=== PATIENT | female | born 1950 | race Hispanic/Latino ===

== ENCOUNTER 2024-02-06 05:54 | Observation (INO) | payer MEDICARE ==
[2024-01-31 13:55] LABS: BASOPHILS # (AUTO) 0.03 K/uL (0.00-0.20); BASOPHILS % (AUTO) 0.4 % (0.0-5.0); EOSINOPHILS # (AUTO) 0.07 K/uL (0.00-0.70); EOSINOPHILS % (AUTO) 0.9 % (0.0-8.0); HEMATOCRIT 41.7 % (36-48); IMMATURE GRANULOCYTE ABSOLUTE 0.02 K/uL (0-1); LYMPHOCYTES # (AUTO) 1.6 K/uL (1.0-4.8); LYMPHOCYTES % (AUTO) 20.5 % (21.0-51.0); MEAN CORPUSCULAR HEMOGLOBIN 30.1 pg (27.0-33.0); MEAN CORPUSCULAR HGB CONC 31.7 g/dL (32.0-36.0); MONOCYTES # (AUTO) 0.6 K/uL (0.1-1.0); MONOCYTES % (AUTO) 7.9 % (3.0-13.0); NEUTROPHILS # (AUTO) 5.3 K/uL (1.8-7.7); PLATELET COUNT (AUTO) 257 K/uL (130-400); RED BLOOD CELL COUNT(AUTO) 4.39 MIL/uL (4.00-5.50); RED CELL DISTRIBUTION WIDTH 12.6 % (11.0-15.5); WHITE BLOOD COUNT (AUTO) 7.6 K/uL (4.8-10.8)
[2024-01-31 14:03] LABS: ADD UA MICROSCOPIC NO; APPEARANCE,URINE CLEAR (CLEAR); BILIRUBIN,URINE NEGATIVE (NEGATIVE); COLOR,URINE LIGHT-YELLOW (YELLOW); GLUCOSE, URINE (UA) NEGATIVE (NEGATIVE); KETONES,URINE NEGATIVE (NEGATIVE); LEUKOCYTE ESTERASE ,URINE NEGATIVE Leu/uL (NEGATIVE); NITRATE,URINE NEGATIVE (NEGATIVE); OCCULT BLOOD,URINE NEGATIVE (NEGATIVE); PROTEIN,URINE NEGATIVE (NEGATIVE); UROBILINOGEN,URINE 0.2 mg/dL (0.2-1.0)
[2024-01-31 14:06] LABS: PARTIAL THROMBOPLASTIN TIME 25.9 SEC (26.3-35.5)
[2024-01-31 14:08] LABS: ALBUMIN 3.6 g/dL (3.5-5.0)
[2024-01-31 14:12] VITALS: BP 170/61; PULSE 75; RESP 18; TEMP 97.9
[2024-01-31 14:25] LABS: INR 0.95 (0.85-1.15); PROTHROMBIN TIME 10.3 SEC (9.6-11.6)
[~2024-02-06] VITALS: Ht 154.9 cm; Wt 102.4 kg
[2024-02-06] VITALS (26 sets, daily range): BP systolic 122–170; BP diastolic 42–98; PULSE 63–98; RESP 12–20; TEMP 97.7–98.1
[~2024-02-06 05:54] MED LIST: ACET-66 PO; FOLI1 PO; LEFL20TA22 PO; LOSA1TAB37 PO; SULF500T8 PO
[2024-02-06] MEDS ORDERED: GLYCOPYRROLATE 0.2 MG/ML 5 ML VIAL ONE (06:38)
[2024-02-06] MEDS ORDERED: SUCCINYLCHOLINE CHLORIDE 20 MG/ML 10 ML VIAL ONE (06:38)
[2024-02-06] MEDS ORDERED: dexaMETHasone SOD PHOSPHATE 10MG/ML 1ML VIAL ONE (06:38)
[2024-02-06] MEDS ORDERED: ondanSETRON 4MG INJ ONE (06:38)
[2024-02-06] MEDS ORDERED: LIDOCAINE PF 100MG/5ML (2%) SYRINGE 5ML ONE (06:38)
[2024-02-06] MEDS ORDERED: rocuRONium bROMide 10MG/1ML 5ML VL ONE (06:39)
[2024-02-06] MEDS ORDERED: MIDAZOLAM HCL 1 MG/ML 2ML VIAL ONE (06:39)
[2024-02-06] MEDS ORDERED: FENTanyl CITRate PF 50 MCG/1 ML 2ML VIAL ONE ×3 (06:39→09:01)
[2024-02-06] MEDS ORDERED: proPOFol 10 MG/ML 20ML VIAL IV ONE (06:39)
[2024-02-06] MEDS ORDERED: NEOSTIGMINE METHYLSULFATE 1MG/ML IV ONE (06:39)
[2024-02-06] MEDS ORDERED: ROPivacaine 0.5% 5MG/ML 30ML ONE ×2 (06:41→06:43)
[2024-02-06] MEDS ORDERED: TRANEXAMIC ACID 1000MG/10ML ONE (06:43)
[2024-02-06] MEDS ORDERED: ketOROlac 30MG VIAL (30MG/ML) ONE (06:43)
[2024-02-06] MEDS: LACTATED RINGERS 1000ML 1,000 ML IV ONE (06:57)
[2024-02-06] MEDS: ceFAZolin SODIUM 2 GM VIAL ONE (06:57)
[2024-02-06] MEDS ORDERED: ketaMINE 50MG/ML SYRINGE 50 MG/ML DISP.SYRIN ONE (07:09)
[2024-02-06 07:21] LABS: CREATININE 0.6 mg/dL (0.5-1.0); POTASSIUM 3.7 mmol/L (3.5-5.1)
[2024-02-06] MEDS: ceFAZolin SODIUM 2 GM VIAL IVPB ONE (07:35)
[2024-02-06] MEDS: ROPivacaine 0.5% 5MG/ML 30ML IJ ONE (09:00)
[2024-02-06] MEDS: 0.9%NACL 1000ML 1,000 ML IV SCH (10:00)
[2024-02-06] MEDS ORDERED: PoTASSium chl 10% ELIXIR 20MEQ 20 MEQ/15 ML UDCUP PO PRN (10:00)
[2024-02-06] MEDS ORDERED: FERROUS FUMARATE 324 MG TABLET PO PRN (10:00)
[2024-02-06] MEDS ORDERED: ondanSETRON 4MG INJ IVP PRN (10:00)
[2024-02-06] MEDS ORDERED: CALCIUM CARB 500MG PO PRN (10:00)
[2024-02-06] MEDS ORDERED: CYCLOBENZAPRINE HCL 10 MG TABLET PO PRN (10:00)
[2024-02-06] MEDS ORDERED: PoTASSium chloRIDE 20MEQ/100ML 100 ML IV PRN (10:00)
[2024-02-06] MEDS: GABApentin 100 MG CAPSULE PO SCH (13:37)
[2024-02-06] MEDS: HYDROcodone/APAP 5/325 1 TAB TABLET PO PRN (13:37)
[2024-02-06] MEDS: ceFAZolin SODIUM 1 GM VIAL IVPB SCH (16:06)
[2024-02-06] MEDS: FOLic ACID 1 MG TABLET PO SCH (20:39)
[2024-02-06] MEDS: LEFLUNOMIDE 20 MG PO SCH (20:39)
[2024-02-06] MEDS: SULFASALAZINE 500 MG PO SCH (20:39)
[2024-02-06] MEDS: traMADol HCL 50 MG TABLET PO PRN (22:43)
[2024-02-07] VITALS (7 sets, daily range): BP systolic 120–151; BP diastolic 52–78; PULSE 81–96; RESP 16–28; TEMP 97.4–99.1; O2SAT 97
[2024-02-07 05:57] LABS: HEMATOCRIT 32.7 % (36-48); MEAN CORPUSCULAR HEMOGLOBIN 30.5 pg (27.0-33.0); MEAN CORPUSCULAR HGB CONC 32.1 g/dL (32.0-36.0); MEAN CORPUSCULAR VOLUME 95.1 fL (79-99); RED BLOOD CELL COUNT(AUTO) 3.44 MIL/uL (4.00-5.50); RED CELL DISTRIBUTION WIDTH 12.5 % (11.0-15.5); WHITE BLOOD COUNT (AUTO) 9.2 K/uL (4.8-10.8)
[2024-02-07 06:06] LABS: CREATININE 0.6 mg/dL (0.5-1.0); POTASSIUM 3.5 mmol/L (3.5-5.1)
[2024-02-07] MEDS: SULFASALAZINE 500 MG PO SCH (09:00)
[2024-02-07] MEDS: polyETHYLene GLYCol 3350 17 GM POWD.PACK PO SCH (09:33)
[2024-02-07] MEDS: ASPIRIN 325MG EC TAB PO SCH (09:33)
[2024-02-07] MEDS: LOSARTAN/HYDROCHLOROTHIAZIDE 50-12.5MG TABLET PO SCH (09:33)
[2024-02-07] MEDS: PoTASSium chloRIDE 20MEQ ER 20 MEQ ERTAB PO PRN (16:15)
[2024-02-08 04:00] VITALS: BP 147/41; PULSE 102; RESP 16; TEMP 98.9
[2024-02-08 08:00] VITALS: BP 103/42; PULSE 95; RESP 20; TEMP 99.7
[2024-02-08 12:00] VITALS: BP 118/50; PULSE 90; RESP 20; TEMP 98.1
[2024-02-08 16:00] VITALS: BP 120/40; PULSE 88; RESP 20; TEMP 98.4
[2024-02-08 20:00] VITALS: O2SAT 97
[2024-02-08 20:45] VITALS: BP 131/50; PULSE 71; RESP 18; TEMP 98.4
[2024-02-09] VITALS (7 sets, daily range): BP systolic 119–152; BP diastolic 52–83; PULSE 83–106; RESP 17–20; TEMP 98.2–99.7; O2SAT 97
[2024-02-09] MEDS ORDERED: BisaCODYL 10 MG SUPP.RECT RC PRN (10:00)
[2024-02-10] VITALS: BP 139/83; PULSE 101; RESP 17; TEMP 98
[2024-02-10 04:00] VITALS: BP 145/72; PULSE 92; RESP 16; TEMP 98.2
[2024-02-10 08:00] VITALS: BP 121/61; PULSE 99; RESP 19; TEMP 98.3
[2024-02-10] MEDS ORDERED: HYDR-4060 PO (10:33)
[2024-02-10] MEDS ORDERED: CYCL-309 PO (10:33)
[2024-02-10] MEDS ORDERED: DOCU-116 PO (10:33)
[2024-02-10] MEDS ORDERED: ASPI-891 PO (10:33)
[2024-02-10 12:00] VITALS: BP 120/63; PULSE 90; RESP 19; TEMP 98
== END 2024-02-10 13:25 ==
LOC: DAH 05:54 → DAHIP 05:55 → DAH 05:55 → 4DH 11:10
PROVIDERS: ADMIT Student in an Organized Health Care Education/Training Program; ATTEND Student in an Organized Health Care Education/Training Program
DX: M17.12 Unilateral primary osteoarthritis, left knee (principal); G89.18 Other acute postprocedural pain; D62 Acute posthemorrhagic anemia; I10 Essential (primary) hypertension; Z90.49 Acquired absence of other specified parts of digestive tract; Z79.899 Other long term (current) drug therapy
CPT/HCPCS: 82040; 85025; 85610; 85730; 84134; 86140; 81003; 36415 ×3; 87641; 64447; 27447; 96365; 96366; 80048 ×2; 73560; 97161; 97116 ×8; 97530 ×11; 85027; G0378 ×94; A4663; A4215 ×2; J7120; J3010 ×3; J0690 ×4; J3490 ×6; J1100; J0330; J2003; J2250; J2704; J2405; J1885 ×2; J2710; J2795 ×3; C1713 ×2; C1776 ×2; A4649 ×2; A4930; A6255; A5120; A4223 ×2; A4222; A4221; A4216